=== PATIENT | female | born 1975 | race Caucasian/White ===

== ENCOUNTER 2016-07-24 07:48 | Observation (INO) | payer OTHER ==
--- NOTE | 2016-07-24 08:06 | CPEKG ---
Heart Rate: 78 RR Interval: 769 P-R Interval: 152 QRSD Interval: 82 QT Interval: 424 QTC Interval: 484 P Florence: 57 QRS Florence: 40 T Wave Florence: 20 EKG Severity - NORMAL ECG - EKG Impression: SINUS RHYTHM Electronically Signed By: Alana Rivera 24-Jul-2016 14:24:50
[2016-07-24 08:27] LABS: % IMMATURE GRANULYOCYTES 0.3 % (0.0-1.1); ABSOLUTE IMMATURE GRANULOCYTES 0.02 10^3/uL (0.00-0.10); ADD DIFF? NO; ADD MORPH? NO; ADD SCAN? NO; ATYPICAL LYMPHOCYTE FLAG 10 (0-99); FRAGMENT RBC FLAG 0 (0-99); HEMATOCRIT 41.2 % (38.0-47.0); HEMOGLOBIN 14.3 g/dL (12.6-16.3); LEFT SHIFT FLG 0 (0-99); LIPEMIA HEMOLYSIS FLAG 90 (0-99); MEAN CELL HEMOGLOBIN 31.1 pg (27.9-34.1); MEAN CELL HEMOGLOBIN CONCENTR. 34.7 g/dL (32.4-36.7); MEAN CELL VOLUME 89.6 fL (81.5-99.8); MEAN PLATELET VOLUME 10.2 fL (8.7-11.7); PLATELET CLUMPS FLAG 30 (0-99); PLATELET COUNT 247 10^3/uL (150-400); RED CELL DISTRIBUTION WIDTH 12.2 % (11.5-15.2)
--- NOTE | 2016-07-24 08:39 | EDPHY ---
H & P Time Seen by Provider: 07/24/16 08:12 HPI/ROS: CHIEF COMPLAINT: chest pain HISTORY OF PRESENT ILLNESS: Patient is a 41-year-old female status post coronary artery dissection in 07/10/2015. This required stenting at [facility]. Patient presents today because she is having increasing chest pain. The patient states she has intermittent chest pain. However, she developed chest pain last evening and into this morning that was worse than normal. It radiated to her left neck and left arm. It is waxing and waning. She describes it is moderate. It was slightly "different". Her pain is slightly worse sitting up when compared to laying back. No recent leg pain or swelling. No new shortness of breath. No nausea or vomiting. She is followed by Dr. Delarosa of Cardiology. REVIEW OF SYSTEMS: My complete review of systems is negative except as mentioned in the HPI. Past Medical/Surgical History: Includes spontaneous coronary artery dissection, anxiety, hip surgery Social history: The patient does not smoke Smoking Status: Never smoked Physical Exam: Vitals noted GENERAL: Well-appearing, in no acute distress, alert. HEENT: Eyes normal to inspection, normal pharynx, no signs of dehydration. NECK: No thyromegaly, no lymphadenopathy, supple. RESPIRATORY: Clear to auscultation bilaterally, no rales, rhonchi or wheezing. CVS: Regular rate and rhythm, no rubs, murmurs, or gallops. ABDOMEN: Soft, nontender, nondistended, no organomegaly. BACK: Normal to inspection, no CVA tenderness. SKIN: Normal color, no rash, warm, dry. No pallor. EXTREMITIES: No pedal edema, no calf tenderness, no Homans sign or cords, no joint swelling. NEURO/PSYCH: Alert and oriented, normal mood and affect, normal motor sensory exam. No obvious cranial nerve deficit. Constitutional: Initial Vital Signs Temperature (C) 36.4 C 07/24/16 07:53 Heart Rate 97 07/24/16 07:53 Respiratory Rate 18 07/24/16 07:53 Blood Pressure 142/96 H 07/24/16 07:53 O2 Sat (%) 98 07/24/16 07:53 O2 Delivery Mode Room Air Allergies/Adverse Reactions: No Known Allergies Allergy (Unverified 07/02/15 07:21) Home Medications: Medication Instructions Recorded LORazepam [Ativan (*)] 0.5 mg PO BID PRN 07/02/15 Multivitamins [Multivitamin (*)] 1 each PO DAILY 07/02/15 [place]-3 Fatty Acids [Fish Oil 1000 1,000 mg PO DAILY 07/02/15 mg (*)] Aspirin EC [Aspirin EC 81 mg (*)] 81 mg PO DAILY #0 tab 07/05/15 Clopidogrel Bisulfate [Plavix (*)] 75 mg PO DAILY #30 tab 07/05/15 Lisinopril [Zestril 5 mg (*)] 5 mg PO DAILY #30 tab 07/05/15 Metoprolol Tartrate [Lopressor 25 25 mg PO BID #60 tab 07/05/15 mg (*)] Medical Decision Making - Diagnostics Imaging: Chest x-ray: No acute disease noted. Please refer the dictated report by the Radiology. I personally reviewed the images. ED Course/Re-evaluation: In the emergency department I discussed possible etiologies with the patient. I answered all her questions. Laboratory studies, EKG and chest x-ray were ordered. I reviewed the patient's previous medical record and her history from 07/10/2015. EKG shows normal sinus rhythm, normal rate, normal axis, normal intervals. There are no ST or T-wave abnormalities. EKG is normal as interpreted by me. I compared this with EKG from 07/04/2015. At that time she had increased elevation in V1 through V5. Patient episode of chest pain while in the emergency department. Repeat EKG was performed. The patient had an episode of sinus tachycardia on EKG to 105. No other ischemic change. Patient did have multiple episodes mild chest discomfort. She was noted to become tachycardic when she had these episodes. This is identified on the rhythm strip. I discussed the results with cardiology. They were in the emergency department to evaluate the patient. I discussed all results with the patient. I answered her questions. She will be admitted for further observation. Differential Diagnosis: My differential includes but is not limited to ACS, acute [place], coronary artery dissection, aortic dissection, aneurysm, pulmonary embolus, myocarditis, pericarditis - Data Points Laboratory Results: Laboratory Results 07/24/16 08:08 07/24/16 08:08 07/24/16 07/24/16 07/24/16 08:08 08:08 08:00 WBC 6.23 10^3/uL 10^3/uL (3.80-9.50) RBC 4.60 10^6/uL 10^6/uL (4.18-5.33) Hgb 14.3 g/dL g/dL (12.6-16.3) Hct 41.2 % % (38.0-47.0) MCV 89.6 fL fL (81.5-99.8) MCH 31.1 pg pg (27.9-34.1) MCHC 34.7 g/dL g/dL (32.4-36.7) RDW 12.2 % % (11.5-15.2) Plt Count 247 10^3/uL 10^3/uL (150-400) MPV 10.2 fL fL (8.7-11.7) Neut % (Auto) 52.4 % % (39.3-74.2) Lymph % (Auto) 34.8 % % (15.0-45.0) [place] % (Auto) 9.5 % % (4.5-13.0) Eos % (Auto) 2.2 % % (0.6-7.6) Baso % (Auto) 0.8 % % (0.3-1.7) Nucleat RBC Rel Count 0.0 % % (0.0-0.2) Absolute Neuts (auto) 3.26 10^3/uL 10^3/uL (1.70-6.50) Absolute Lymphs (auto) 2.17 10^3/uL 10^3/uL (1.00-3.00) Absolute Monos (auto) 0.59 10^3/uL 10^3/uL (0.30-0.80) Absolute Eos (auto) 0.14 10^3/uL 10^3/uL (0.03-0.40) Absolute Basos (auto) 0.05 10^3/uL 10^3/uL (0.02-0.10) Absolute Nucleated RBC 0.00 10^3/uL 10^3/uL (0-0.01) Immature Gran % 0.3 % % (0.0-1.1) Immature Gran # 0.02 10^3/uL 10^3/uL (0.00-0.10) PT INR APTT Sodium 138 mEq/L mEq/L (134-144) Potassium 3.9 mEq/L mEq/L (3.5-5.2) Chloride 102 mEq/L mEq/L (97-110) Carbon Dioxide 23 mEq/l mEq/l (22-31) Anion Gap 13 mEq/L mEq/L (8-16) BUN 16 mg/dL mg/dL (7-23) Creatinine 0.7 mg/dL mg/dL (0.6-1.0) Estimated GFR > 60 Glucose 125 mg/dL H mg/dL (70-100) Calcium 9.8 mg/dL mg/dL (8.5-10.4) Troponin I < 0.012 ng/mL ng/mL (0-0.034) Beta HCG, Qual NEGATIVE 07/24/16 08:00 WBC RBC Hgb Hct MCV MCH MCHC RDW Plt Count MPV Neut % (Auto) Lymph % (Auto) [place] % (Auto) Eos % (Auto) Baso % (Auto) Nucleat RBC Rel Count Absolute Neuts (auto) Absolute Lymphs (auto) Absolute Monos (auto) Absolute Eos (auto) Absolute Basos (auto) Absolute Nucleated RBC Immature Gran % Immature Gran # PT 13.2 SEC SEC (12.0-15.0) INR 1.01 (0.83-1.16) APTT 25.0 SEC SEC (23.0-38.0) Sodium Potassium Chloride Carbon Dioxide Anion Gap BUN Creatinine Estimated GFR Glucose Calcium Troponin I Beta HCG, Qual Departure - Departure Disposition: [facility] Inpatient Acute Clinical Impression: Chest pain Qualifiers: Chest pain type: other chest pain Qualified Code(s): R07.89 - Other chest pain ; R07.8 - Other chest pain Condition: Good Referrals: NONE *PRIMARY CARE P,. [Primary Care Provider] - As per Instructions
[2016-07-24 08:48] LABS: INR 1.01 (0.83-1.16); PROTIME(PATIENT) 13.2 SEC (12.0-15.0)
[2016-07-24 08:59] LABS: ANION GAP 13 mEq/L (8-16); CALCIUM 9.8 mg/dL (8.5-10.4); CARBON DIOXIDE 23 mEq/l (22-31); CHLORIDE 102 mEq/L (97-110); CREATININE 0.7 mg/dL (0.6-1.0); GLOMERULAR FILTRATION RATE > 60; GLUCOSE 125 mg/dL (70-100); POTASSIUM 3.9 mEq/L (3.5-5.2); SODIUM 138 mEq/L (134-144)
[2016-07-24 09:10] LABS: TROPONIN I < 0.012 ng/mL (0-0.034)
--- NOTE | 2016-07-24 09:10 | CPEKG ---
Heart Rate: 105 RR Interval: 571 P-R Interval: 148 QRSD Interval: 82 QT Interval: 384 QTC Interval: 508 P [place]: 57 QRS [place]: 46 T Wave [place]: 33 EKG Severity - BORDERLINE ECG - EKG Impression: SINUS TACHYCARDIA EKG Impression: BORDERLINE PROLONGED QT INTERVAL Electronically Signed By: Alana Rivera 24-Jul-2016 14:24:50
[2016-07-24] MEDS ORDERED: ACETAMINOPHEN 325 MG TAB PO PRN (09:51)
[2016-07-24] MEDS ORDERED: ONDANSETRON 4 MG/2 ML VIAL IVP PRN (09:51)
[2016-07-24] MEDS ORDERED: ONDANSETRON DISINTEGRATING 4 MG TAB PO PRN (09:51)
--- NOTE | 2016-07-24 11:30 | ECHO ---
[id number] + + [address] : : [place] [address] : : [phone] + + Adult Echocardiographic Report + ---+ :Name: ANDREA VARGASAyden Date: 07/24/2016 09:50 AM : : Hospital Admission Number: [id number] Location: ED: :: 1975 Gender: Female Height: 63 in : :Age: 41 yrs Race: WH Weight: 126 lb : :Reason For Study: CP : : BSA: 1.6 meters2 : :History: SCAD, PCI LAD : + ---+ MMode/2D Measurements \T\ Calculations IVSd: 0.59 cm LVIDd: 4.4 cm FS: 40.5 % LVOT diam: 1.8 cm LVPWd: 0.76 cm LVIDs: 2.6 cm EDV(Teich): LVOT area: 89.6 ml 2.5 cm2 ESV(Teich): 25.6 ml EF(Teich): 71.5 % LVLd ap4: 8.3 cm SV(MOD-sp4): EDV(MOD-sp4): 50.0 ml 77.0 ml LVLs ap4: 6.1 cm ESV(MOD-sp4): 27.0 ml EF(MOD-sp4): 64.9 % Normal Measurement Values: + + :LVIDd (3.5-5.7cm) IVSd (0.6-1.1cm) LVPWd (0.6-1.1cm) Aortic Root (2.0-3.7cm)Left Atrium (1.5-4.0cm): :LV Vol(d) (76-115ml) LV Vol(s) (29-48ml) Ejec Fraction (50-65%)PV Charles (0.6- 1.2m/s) TV Charles (0.4-1.0m/s) : :MV E Charles (0.8-1.0m/s)MV A Charles (0.3-1.0m/s)LVOT Charles (0.7-1.2m/s) Asc Ao Charles ( 0.9-1.8m/s) : + + Doppler Measurements \T\ Calculations MV E max charles: MV V2 max: Ao V2 max: LV V1 max: 83.3 cm/sec 84.0 cm/sec 161.0 cm/sec 127.0 cm/sec MV A max charles: MV max PG: Ao max PG: LV V1 max P.8 cm/sec 2.8 mmHg 10.4 mmHg 6.5 mmHg MV E/A: 1.5 MV V2 mean: Ao mean PG: LV V1 mean PG: MV dec time: 52.5 cm/sec 5.0 mmHg 3.0 mmHg 0.25 sec MV mean PG: Ao V2 mean: LV V1 mean: 1.0 mmHg 103.0 cm/sec 86.5 cm/sec MV V2 VTI: 28.6 cmAo V2 VTI: 29.9 cm LV V1 VTI: 25.2 cm MVA(VTI): 2.2 cm2 JEAN(I,D): 2.1 cm2 JEAN(V,D): 2.0 cm2 SV(LVOT): 64.1 ml PA V2 max: TR max charles: Pulm Sys Charles: 109.0 cm/sec 221.0 cm/sec 54.0 cm/sec PA max PG: TR max PG: Pulm Lopez Charles: 4.8 mmHg 19.5 mmHg 48.2 cm/sec RAP systole: Pulm S/D: 1.1 10.0 mmHg RVSP(TR): 29.5 mmHg Left Ventricle The left ventricle is normal in size and function. There is normal left ventricular wall thickness. Left ventricular systolic function is normal. Ejection Fraction = 60-65%. Mild mid- anteroseptal hypokinesis. Right Ventricle The right ventricle is normal in size and function. Atria The left atrial size is normal. Right atrial size is normal. Mitral Valve The mitral valve is normal in structure and function. There is no mitral valve stenosis. There is trace to mild mitral regurgitation. Tricuspid Valve The tricuspid valve is normal in structure and function. There is no tricuspid stenosis. There is mild tricuspid regurgitation. Right ventricular systolic pressure is normal. Aortic Valve The aortic valve is normal in structure and function. There is no aortic stenosis. There is no aortic insufficiency. Pulmonic Valve The pulmonic valve is not well visualized. There is no pulmonic valvular stenosis. There is no pulmonic valvular regurgitation. Great Vessels The aortic root is normal size. Pericardium/Pleural trivial pericardial effusion. There is a fat pad seen. Conclusion A complete two-dimensional transthoracic echocardiogram was performed (2D, M-mode, Doppler and color flow Doppler). The left ventricle is normal in size and function. Ejection Fraction = 60-65%. Left ventricular systolic function is normal. Mild mid- anteroseptal hypokinesis There is trace to mild mitral regurgitation. There is mild tricuspid regurgitation. Right ventricular systolic pressure is normal. The aortic valve is normal in structure and function. trivial pericardial effusion. Similar findings compared with 07/02/2015 Final Reading Physician: Dr Tracy Aguayo electronically signed on 07/24/2016 11:30 AM Ordering Physician: Nba Bhardwaj Performed By: Eden Deleon
[2016-07-24] MEDS: LORazepam 0.5 MG TAB PO PRN ×2 (14:03→21:06)
[2016-07-24 14:16] LABS: C-REACTIVE PROTEIN < 5.0 mg/L (<10.0)
[2016-07-24 14:21] LABS: HEMATOCRIT 37.4 % (38.0-47.0)
[2016-07-24 14:25] LABS: TROPONIN I < 0.012 ng/mL (0-0.034)
--- NOTE | 2016-07-24 14:56 | GHP ---
DATE OF ADMISSION: 07/24/2016 CHIEF COMPLAINT: Ongoing midsternal chest pressure. HISTORY OF PRESENT ILLNESS: The patient is a 41-year-old female, who is known to our service. She has a significant cardiac history of spontaneous coronary artery dissection July 02, 2015, causin g an anterior ND and requiring PCI with 2 ALLIE implantations of the LAD on July 03, 2015. She als o has significant history of hypertension. Patient reporting onset of midsternal chest pressure wit h radiation to the left arm starting last evening, reporting it as intermittent, coming on spontaneo usly, not associated with shortness of breath, nausea, or diaphoresis. Reporting he felt like the s ymptoms somewhat subsided last evening, unable to sleep, but unfortunately, waking up again with sim ilar symptoms. She has been known in the past to have intermittent chest pressure since her angiopl asty, but reports that the symptoms she experienced last evening and this morning, are different, an d she has not experienced any radiation to her arm since her ND. This had concerned her, and liza t her into the emergency department for further evaluation. Upon arrival, initial electrocardiogram done, showing sinus rhythm with nonspecific T-wave abnormalities. This is unchanged from previous electrocardiogram done earlier this year at her last office visit on June 24. She did develop some chest pressure, and her heart rate then noted to be increased. At that time, it was noted that she did have a mild biphasic T-wave in V2. She reports yesterday she was in her normal state healt h, but did report that last Thursday, being up at [place] and reporting feeling more fatigue a nd shortness of breath, requiring her to leave early. She denies any palpitations, orthopnea, PND, edema, near-syncope, or syncopal events. Denies any symptoms suggestive of TIA or CVA. She denies any recent fevers, chills, or night sweats. She does report that her chest pressure appears to be f eeling better when she is lying flat versus when sitting up. She does report she has been medicatio n compliant. Post her ND, she was seen at the [facility], and in reviewing her medical records, pb vargas has undergone CTA of the neck, abdomen, and pelvis, showing no signs of fibromuscular dysplasia. Patient also reports that she had recently been started on hydrochlorothiazide by Dr. Delarosa due to o ngoing episodes of hypertension with systolic blood pressures running in 150s to 160s, despite being on metoprolol and lisinopril. She reported initial dose of 12.5 mg p.o. daily had made her feel li ghtheaded and dizzy, and they had recently decreased the dosage last week down to 6.25 mg p.o. daily , reporting no further symptoms of lightheadedness. PAST MEDICAL HISTORY: The patient is known to have spontaneous coronary artery dissection of the le ft anterior descending artery, causing clot and thrombus and anterior ND, requiring 2 ALLIE implantati ons July 03, 2015, hypertension, myocardial infarction. PAST SURGICAL HISTORY: Includes open left hip reconstruction in 2010, PCI of the LAD with 2 ALLIE imp lantations in 2016. FAMILY HISTORY: Patient noted to have a grandfather with coronary artery disease. Father had a CVA at age 35. Both mother and father have hypertension. SOCIAL HISTORY: She is in a long-term relationship. She has no children. She occasionally drinks alcohol. She has never smoked. She exercises 3-4 times a week. She is self-employed. She denies any illicit drug use. ALLERGIES: The patient has no known drug allergies. HOME MEDICATIONS: Include: 1. Hydrochlorothiazide 6.25 mg p.o. daily. 2. Aspirin 81 mg p.o. daily. 3. Metoprolol succinate 12.5 mg p.o. at bedtime. 4. Ativan 0.5 mg p.o. q.6 hours p.r.n. 5. Clopidogrel 75 mg p.o. daily. 6. Lisinopril 20 mg p.o. daily. 7. [place]-3 fatty acid 1000 mg p.o. daily. 8. Multivitamin p.o. daily. REVIEW OF SYSTEMS: A 10-point review of systems done on this patient all negative, except as moses loco above. PHYSICAL EXAMINATION: GENERAL APPEARANCE: Thin, well-groomed, female. She is alert, aide ented to person, place, time, and situation. Appears to be under no acute distress at this time. V ITAL SIGNS: Current blood pressure is 119/89, heart rate is 63, sinus rhythm on the monitor. Respi rations 18, saturating 96% on room air. Temperature 36.7 degrees Celsius. HEENT: Head is normocep halic. Lips and tongue are pink and moist with no signs of cyanosis. Conjunctivae pink. NECK: Tr achea is midline, +2 carotid pulses bilateral. No auscultated bruits. No jugular vein distention. RESPIRATORY: Lungs clear to auscultation. No rhonchi, rales or wheezes. No accessory muscle use. No intercostal muscle retraction. CARDIAC: Regular rate, regular rhythm, S1, S2. No S3, S4 note d. ABDOMEN: Soft, nontender, bowel sounds x4 quadrants. No organomegaly. No palpable masses. SK IN: [place], warm, dry. No cyanosis, no clubbing, no peripheral edema. VASCULAR: +2 carotids bilate ral, +2 radials bilateral, +2 dorsal, pedal and posterior tibial pulses bilateral. NEURO: Cranial nerves 2-12 grossly intact. LABORATORY STUDIES: WBC 6.23, hemoglobin 14.3, hematocrit 41.2, platelet count 247. INR 1.01. Sod ium 138, potassium 3.9, chloride 102, CO2 of 23, BUN 16, creatinine 0.7, glucose 125, calcium 9.8. Troponin less than 0.012. test negative. DIAGNOSTIC STUDIES: Initial electrocardiogram and repeated electrocardiogram as mentioned above. C hest x-ray showed no acute cardiopulmonary process. Echocardiogram showed LV of normal size and fun ction with EF of 60% to 65%. Mild mid anterior septal hypokinesis. Trace to mild MR, mild TR. RVS P was normal. Trivial pericardial effusion. These, in comparison to previous echocardiogram dated July 02, 2015, show no significant changes. ASSESSMENT/PLAN: 1. Chest pressure: Patient with known history of spontaneous coronary artery disease dissection, w hich caused an anterior myocardial infarction, needing PCI with 2 ALLIE implantations a little over a year ago, reporting known history of episodic sporadic chest pressure, reporting different sensation today, with radiation into her left arm, coming on spontaneously, and dissipating intermediately. Echocardiogram showing left ventricular function unchanged from previous echocardiogram done on 2015. The patient does admit chest pressure is worse when sitting up rather than lying flat . Denies any fever, chills, or night sweats, but does report fatigue symptoms when up to altitude o n Thursday of last week. Initial troponin negative. Initial electrocardiogram unchanged. With chest pressure, she did get tachycardiac. Patient noted to have biphasic T-waves in V2. At this time, t here is concern with past history of possible acute coronary syndrome, potentially beginning of rest enosis of stents. We will admit her to the hospital, monitor her on continuous cardiac monitoring, and cycle her troponins. If they remain negative, we will then consider doing an exercise tolerance test/myocardial perfusion imaging on her in the morning. If they do show positive, or if her sympt oms worsen, then would consider doing diagnostic coronary angiogram for further evaluation of cardia c ischemia. Also, there is some concern as the patient was noted to have questionable pericarditis post myocardial infarction. She reports symptoms are different from what she felt in the past, but does admit positional change does make a difference with pressure. No signs of pericarditis on elec trocardiogram at this time. Will get a C-reactive protein and a sedimentation rate with her next la boratory studies. Will also get a D-dimer. We will continue on current home anti-platelet therapy of aspirin and clopidogrel. Will resume her beta-vonnie therapy of metoprolol succinate. 2. Hypertension: Patient with noted history of hypertension. Will resume her home doses of Toprol and lisinopril. Patient reporting recently starting on hydrochlorothiazide reporting at 12.5 mg p. o. daily making her feel fatigued and lightheaded, but no symptoms since reducing dose to 6.25 mg. I would like to hold off on restarting her hydrochlorothiazide at this time, monitor her blood press ure. If necessary, will re-add the hydrochlorothiazide or consider increasing her lisinopril or pot entially starting her on low-dose amlodipine. 3. History of spontaneous coronary artery dissection: Patient remains on anti-platelet therapy as above. She has been to the [facility] who have done CTA of the neck, abdomen, pelvis, finding no f ibromuscular dysplasia. Medical therapy as above. 4. Code status: Patient is a full code. 5. Deep vein thrombosis precaution: Patient to continue on anti-platelet therapy as mentioned kian vargas. She is up ad regino. We will have her use ANAMIKA hose as needed. /[id number]/MODL
[2016-07-24] MEDS ORDERED: NITROGLYCERIN 0.4 MG BTL SL PRN (16:51)
[2016-07-24] MEDS: IBUPROFEN 200 MG TAB PO PRN (17:29)
[2016-07-24] MEDS ORDERED: METOPROLOL SUCCINATE XR 25 MG TAB PO SCH (21:00)
[2016-07-25] MEDS: PANTOPRAZOLE SODIUM 40 MG TAB PO SCH ×2 (05:31→07:53)
[2016-07-25] MEDS: LORazepam 0.5 MG TAB PO PRN (07:52)
[2016-07-25] MEDS: IBUPROFEN 200 MG TAB PO PRN (07:55)
[2016-07-25] MEDS ORDERED: ASPIRIN EC 81 MG TAB PO SCH (09:00)
[2016-07-25] MEDS ORDERED: MULTIVITAMINS 1 EACH TAB PO SCH (09:00)
[2016-07-25] MEDS ORDERED: LISINOPRIL 20 MG TAB PO SCH (09:00)
[2016-07-25] MEDS ORDERED: OMEGA-3 FATTY ACIDS 1,000 MG CAP PO SCH (09:00)
[2016-07-25] MEDS ORDERED: CLOPIDOGREL BISULFATE 75 MG TAB PO SCH (09:00)
[2016-07-25] MEDS ORDERED: Herbals/Supplements -Info Only PO SCH (09:00)
--- NOTE | 2016-07-25 09:08 | CPEKG ---
Heart Rate: 61 RR Interval: 984 P-R Interval: 156 QRSD Interval: 74 QT Interval: 440 QTC Interval: 444 P Cod[place]: 64 QRS [place]: 57 T Wave [place]: 39 EKG Severity - ABNORMAL ECG - EKG Impression: SINUS RHYTHM EKG Impression: ST ELEVATION SUGGESTS PERICARDITIS Electronically Signed By: Damion Wang 25-Jul-2016 14:39:50
[2016-07-25] MEDS ORDERED: FLU VACC QS 2016-17(3-64YR)/PF 0.5 ML SYR (FLUARIX QUAD) IM ONE (10:48)
[2016-07-25] MEDS ORDERED: REGADENOSON 0.4 MG/5 ML SYR IVP ONE (11:04)
--- NOTE | 2016-07-25 12:32 | CPR ---
LEXISCAN INJECTION OF LEXISCAN MPI STUDY. INDICATION FOR PROCEDURE: Chest pressure with known history of spontaneous coronary artery dissection and previous myocardial infarction. PRE: After obtaining informed consent and ensuring patient's n.p.o. status of caffeine for greater than 12 hours, patient was placed on electrocardiogram. Initial EKG shows sinus rhythm. Patient denies of any chest pain or shortness of breath. Symptoms suggesting of ischemia. Initial vital signs are blood pressure 130/80, saturating 98% on room air. INJECTION: Patient was given Lexiscan 0.4 mg slow IV push, followed by nuclear isotope. Within 1 minute, patient's heart rate did increase up to 127 bpm, no significant electrocardiogram changes. She does report mild flushing sensation with some shortness of breath post injection. After 2 minutes, she was given a caffeinated beverage, and within 5 minutes, her heart rate returned back to baseline at 90 beats per minute, electrocardiogram remained unchanged, final blood pressure of 120/87, saturation 97%, reporting all symptoms subsided. IMPRESSION: A 41-year-old female with previous history of spontaneous coronary artery dissection and myocardial infarction of the LAD 1 year ago. Reporting ongoing chest pressure, undergoing Lexiscan MPI to evaluate for cardiac ischemia. The patient reporting mild shortness of breath with injection of Lexiscan which dissipated with caffeinated beverage within 5 minutes. No significant EKG changes during injection. Vital signs are stable. She will finish poststress imaging in nuclear medicine at this time. /[id number]/MODL MTDD
[2016-07-25 12:45] VITALS: BP 109/78; PULSE 67; RESP 17; TEMP 97.9; O2SAT 98
[2016-07-25] MEDS ORDERED: IBUPROFEN 600 MG TAB PO SCH (14:00)
[2016-07-25] MEDS ORDERED: COLCHICINE 0.6 MG CAP/TAB PO SCH (21:00)
--- NOTE | 2016-07-25 22:14 | GDS ---
ADMISSION DIAGNOSES: 1. Chest pressure. 2. Sudden coronary artery dissection. 3. Previous myocardial infarction of the LAD with percutaneous coronary intervention. 4. Hypertension. DISCHARGE DIAGNOSES: 1. Chest pressure probable pericarditis. 2. Subacute history of sudden coronary artery dissection. 3. Previous myocardial infarction of anterior wall with previous percutaneous coronary intervention . 4. Hypertension. PROCEDURES DONE DURING HOSPITALIZATION: 1. Electrocardiogram. 2. Echocardiogram. 3. Myocardial perfusion imaging. BRIEF HISTORY: Please see H and P. The patient is a 41-year-old female with history of myocardial infarction, sudden coronary artery dissection, and ALLIE implantation June of 2015. She reports s he had been in normal state of health until last with fatigue symptoms and havin g to come home early. Reports rest of the week, she had been doing fine until the morning of the 2n d, reporting midsternal chest pressure with mild radiation to her left arm. Reporting this is diffe rent from previous chest pressure she has had post PCI that worried her and came to the hospital for further evaluation. HOSPITAL COURSE: Patient was admitted through the emergency department. There, she underwent elect rocardiogram showing sinus rhythm with no acute ST or T-wave abnormalities. Chest x-ray showed no a cute cardiopulmonary process. Troponin level was negative. She did undergo echocardiogram while do wn there which showed normal ejection fraction of 60% to 65%, but noted to have mild mid anterior se ptal hypokinesis, which was unchanged from her previous echocardiogram of July 02, 2015. She was admitted to the hospital to rule out ACS. She underwent troponin levels x3, which were all within normal limits. She also had a D-dimer which was less than 0.27. She reports her pain did subside a fter a dose of ibuprofen. She underwent stress MPI imaging today which noted fixed thinning of the septal wall with some mild hypokinesis, but no reversible deficit suggesting myocardial ischemia. E lectrocardiograms done today did notice mild ST elevation in multiple leads consistent with possible pericarditis. At this time, she has been started on nonsteroidal anti-inflammatories of ibuprofen 800 mg every 8 hours, which we would like her continue for the next 10 days. She has been started o n prophylactic Protonix to take along with ibuprofen. She has been also started on colchicine at 0. 6 mg p.o. b.i.d. At the current time, she is pain-free. Her vital signs have been stable. PHYSICAL EXAMINATION: GENERAL: Today, showed a medium built, well-groomed, female. She is alert and oriented to person, place, time, and situation. Appears to be under no acute distress. VITAL SIGNS: Blood pressure of 109/78, heart rate 67, sinus rhythm on the monitor. Respirations are 17. Saturating 98% on room air. Temperature 36.6 degrees Celsius. HEENT: Head is normocephal ic. Lips are pink and moist with no signs of cyanosis. Conjunctivae pink. NECK: Trachea is midli ne, +2 carotid pulses bilateral. No auscultated bruits. No jugular vein distention. RESPIRATORY: Lungs clear to auscultation. No rhonchi, rales or wheezes. No accessory muscle use. No intercost al muscle retraction noted. CARDIAC: Regular rate, regular rhythm. S1, S2. No S3, S4. No rubs, gallops, or murmur noted. ABDOMEN: Soft, nontender. Bowel sounds x4 quadrants. No organomegaly. No palpable masses. SKIN: [place], warm, dry. No cyanosis. No clubbing. No peripheral edema. VAS CULAR: +2 carotids bilateral, +2 radials bilateral, +2 dorsal, pedal and posterior tibial pulses bi lateral. NEURO: Cranial nerves 2-12 grossly intact. LABORATORY: Cardiac monitoring throughout the evening showed sinus rhythm, sinus esther with no ami gnant arrhythmias or pauses noted. Laboratory studies on admission: WBC 6.23, hemoglobin 14.3, hematocrit 41.2, platelet count 247. I NR was 1.01. D-dimer was less than 0.27. Sodium 138, potassium 3.9, chloride 102, CO2 23, BUN 16, creatinine 0.7, glucose 125, calcium 9.8. The patient has had 3 troponin levels that have all been less than 0.012. test was negative. ESR was 7. C-reactive protein was less than 5.0. STUDIES: Echocardiogram: As above. MPI study: As above. Electrocardiogram: As above. DISCHARGE DISPOSITION: Patient will be discharged home in fair condition. She is under activity re strictions. She has been asked to perform no strenuous activity for the next 2 weeks until she foll ows up in office. DISCHARGE MEDICATIONS: Please see discharge medication reconciliation sheet. Note that patient's b lood pressure has been stable. Her blood pressure has been within normal limits. She does not like the hydrochlorothiazide that she takes. We will hold it at this time. She has been asked to monit or her blood pressure on a daily basis, keeping a log, and returning with it on her next office visi t. Patient has also been started on ibuprofen every 8 hours, Protonix, and colchicine. No other ch anges in her home medications. She will continue on current home anti-platelet therapy of aspirin a nd clopidogrel. DISCHARGE INSTRUCTIONS: Pericarditis discharge instructions were gone over with the patient and her significant other. They both verbalized understanding. Patient reports she is currently chest murphy n free. Vital signs are stable. She has been told that if she has any problems or concerns when ho me, she is to notify our office or return to the hospital. Blood pressure monitoring: She has been asked to perform a home BP log on a daily basis and return with it on her next office visit for further evaluation. She has a followup appointment set with Dr. Delarosa on August 04 at 10 a.m. at our [place] office. At the time of discharge, both patient and her verbalized understanding all instructions. TOTAL TIME SPENT ON DISCHARGE: Greater than 30 minutes. /[id number]/MODL
== END 2016-07-25 15:50 | disposition home or self-care (01) ==
LOC: F2W 10:54
PROVIDERS: ADMIT Internal Medicine Cardiovascular Disease; ATTEND Internal Medicine Cardiovascular Disease
DX: I31.9 Disease of pericardium, unspecified (principal); Z23 Encounter for immunization; I25.2 Old myocardial infarction; I10 Essential (primary) hypertension
CPT/HCPCS: 71010; 78452; 90471; 93005; 93017; 93306; 99285; A9500; G0378; G0008; J2785

== ENCOUNTER 2016-12-12 18:50 | Emergency (ER) | payer BC, OTHER ==
[2016-12-12 18:56] VITALS: RESP 18
--- NOTE | 2016-12-12 19:06 | EDPHY ---
H & P Stated Complaint: Upper abd pain x 2 hrs; slight nausea;denies vom or diarrhea Time Seen by Provider: 12/12/16 19:06 HPI/ROS: HPI CHIEF COMPLAINT: [ ] HISTORY OF PRESENT ILLNESS: [Need 4: Location, Duration, Severity, Quality, Context, Timing Modifying Factors, Associated S&S] Past Medical History: Past Surgical History: Social History: Family History: ROS REVIEW OF SYSTEMS: A comprehensive 10 point review of systems is otherwise negative aside from elements mentioned in the history of present illness. Exam Constitutional triage nursing summary reviewed, vital signs reviewed, awake/ alert. Eyes normal conjunctivae and sclera, EOMI, PERRLA. HENT normal inspection, atraumatic, moist mucus membranes, no epistaxis, neck supple/ no meningismus, no raccoon eyes. Respiratory clear to auscultation bilaterally, normal breath sounds, no respiratory distress, no wheezing. Cardiovascular rate normal, regular rhythm, no murmur, no edema, distal pulses normal. Gastrointestinal soft, non-tender, no rebound, no guarding, normal bowel sounds, no distension, no pulsatile mass. Genitourinary no CVA tenderness. Musculoskeletal no midline vertebral tenderness, full range of motion, no calf swelling, no tenderness of extremities, no meningismus, good pulses, neurovascularly intact. Skin pink, warm, & dry, no rash, skin atraumatic. Neurologic awake, alert and oriented x 3, AAOx3, moves all 4 extremities equally, motor intact, sensory intact, CN II-XII intact, normal cerebellar, normal vision, normal speech. Psychiatric normal mood/affect. Heme/Lymph/Immune no lymphadenopathy. Differential Diagnosis: Medical Decision Making: Re-evaluation: Source: Patient - Personal History LMP (Females 10-55): Now Current Tetanus Diphtheria and Acellular Pertussis (TDAP): Yes - Medical/Surgical History Hx Asthma: No Hx Chronic Respiratory Disease: No Hx Diabetes: No Hx Cardiac Disease: No Hx Renal Disease: No Hx Cirrhosis: No Hx Alcoholism: No Hx HIV/AIDS: No Hx Splenectomy or Spleen Trauma: No Other PMH: anxiety, hip surgery. cardiac dissection 07/10. pericarditis - Social History Smoking Status: Never smoked Constitutional: Initial Vital Signs Temperature (C) 36.6 C 12/12/16 18:50 Heart Rate 78 12/12/16 18:50 Respiratory Rate 18 12/12/16 18:50 Blood Pressure 135/97 H 12/12/16 18:50 O2 Sat (%) 99 12/12/16 18:50 O2 Delivery Mode Room Air Allergies/Adverse Reactions: No Known Allergies Allergy (Verified 12/12/16 18:51) Home Medications: Medication Instructions Recorded LORazepam [Ativan (*)] 0.5 mg PO Q6H PRN 07/02/15 Multivitamins [Multivitamin (*)] 1 each PO DAILY 07/02/15 [place]-3 Fatty Acids [Fish Oil 1000 1,000 mg PO DAILY 07/02/15 mg (*)] Aspirin EC [Aspirin EC 81 mg (*)] 81 mg PO DAILY #0 tab 07/05/15 Clopidogrel Bisulfate [Plavix (*)] 75 mg PO DAILY #30 tab 07/05/15 [place]/Supplements -Info Only 1 ea PO DAILY 07/24/16 Lisinopril [Zestril 20 mg (*)] 20 mg PO DAILY 07/24/16 Metoprolol Succinate Xr [Toprol Xl 12.5 mg PO HS 07/24/16 25 mg (*)] Acetaminophen [Tylenol 325mg (*)] 650 mg PO Q4HRS PRN #0 tab 07/25/16 Colchicine [Colchicine (*)] 0.6 mg PO BID #60 ea 07/25/16 Ibuprofen [Motrin (*)] 600 mg PO Q8 #0 tab 07/25/16 Nitroglycerin [Nitrostat 0.4 mg 0.4 mg SL Q5M PRN #0 btl 07/25/16 (*)] Pantoprazole Sodium [Protonix 40mg 40 mg PO DAILY #30 tab 07/25/16 (*)] Departure - Departure Referrals: NONE *PRIMARY CARE P,. [Primary Care Provider] - As per Instructions
--- NOTE | 2016-12-12 19:06 | EDPHY ---
H & P Stated Complaint: Upper abd pain x 2 hrs; slight nausea;denies vom or diarrhea Time Seen by Provider: 12/12/16 19:06 HPI/ROS: CHIEF COMPLAINT: Right-sided abdominal pain. HISTORY OF PRESENT ILLNESS: This patient is a 41 year old female arriving with her complaining of right-sided abdominal pain that began two hours ago. The pain is localized under her right ribs, and occasionally radiates up into her shoulder. She states the pain is quite severe, rating it at 10/10. It began abruptly. She endorses increased pain with deep inspiration but no chest pain or shortness of breath. She had a sweet potato taco and a beer earlier this evening parentheses she is vegetarian), and attempted to relieve her pain with ibuprofen, which had no effect. She endorses slight nausea from pain, but denies vomiting, or diarrhea. No back pain or dysuria. No fever. No prior history of abdominal surgery. REVIEW OF SYSTEMS: A ten point review of systems was performed and is negative with the exception of the items mentioned in the HPI. - Personal History LMP (Females 10-55): Now Current Tetanus Diphtheria and Acellular Pertussis (TDAP): Yes - Medical/Surgical History PMH: 1. Myocardial Infarction 2. Spontaneous coronary artery dissection 2. Hypertension Hx Asthma: No Hx Chronic Respiratory Disease: No Hx Diabetes: No Hx Cardiac Disease: No Hx Renal Disease: No Hx Cirrhosis: No Hx Alcoholism: No Hx HIV/AIDS: No Hx Splenectomy or Spleen Trauma: No Other PMH: anxiety, hip surgery. Coronary artery dissection with resultant NSTEMI 07/10. pericarditis - Social History Smoking Status: Never smoked Alcohol Use: Occasionally Additional Social History: at bedside. Nonsmoker. Occasional alcohol use. - Physical Exam Exam: General Appearance: Alert. Vital signs reviewed. Blood pressure 135/97. Eyes: Pupils equal and round, no conjunctival injection, no discharge. Anicteric. ENT, Mouth: Mucous membranes are moist, no oropharyngeal erythema or edema. Neck: No lymphadenopathy, supple. Respiratory: Lungs are clear to auscultation; no wheezes, rales, or rhonchi. Cardiovascular: Regular rate and rhythm; no murmur, rub, or gallop. Gastrointestinal: Midepigastric and right upper quadrant tenderness. No guarding. Abdomen is soft, no masses or organomegaly, bowel sounds normal. Skin: Warm and dry, no rashes on exposed skin, normal color. Back: Nontender to palpation over the thoracolumbar spine. No CVAT. Extremities: No lower extremity edema, no calf tenderness or swelling. Neurological: Alert and oriented. Moving all four extremities easily and equally. Psychiatric: Normal affect. Constitutional: Initial Vital Signs Temperature (C) 36.6 C 12/12/16 18:50 Heart Rate 78 12/12/16 18:50 Respiratory Rate 18 12/12/16 18:50 Blood Pressure 135/97 H 12/12/16 18:50 O2 Sat (%) 99 12/12/16 18:50 O2 Delivery Mode Room Air Allergies/Adverse Reactions: No Known Allergies Allergy (Verified 12/12/16 18:51) Home Medications: Medication Instructions Recorded LORazepam [Ativan (*)] 0.5 mg PO Q6H PRN 07/02/15 Multivitamins [Multivitamin (*)] 1 each PO DAILY 07/02/15 [place]-3 Fatty Acids [Fish Oil 1000 1,000 mg PO DAILY 07/02/15 mg (*)] Aspirin EC [Aspirin EC 81 mg (*)] 81 mg PO DAILY #0 tab 07/05/15 Clopidogrel Bisulfate [Plavix (*)] 75 mg PO DAILY #30 tab 07/05/15 Herbals/Supplements -Info Only 1 ea PO DAILY 07/24/16 Lisinopril [Zestril 20 mg (*)] 20 mg PO DAILY 07/24/16 Metoprolol Succinate Xr [Toprol Xl 12.5 mg PO HS 07/24/16 25 mg (*)] Acetaminophen [Tylenol 325mg (*)] 650 mg PO Q4HRS PRN #0 tab 07/25/16 Colchicine [Colchicine (*)] 0.6 mg PO BID #60 ea 07/25/16 Ibuprofen [Motrin (*)] 600 mg PO Q8 #0 tab 07/25/16 Nitroglycerin [Nitrostat 0.4 mg 0.4 mg SL Q5M PRN #0 btl 07/25/16 (*)] Pantoprazole Sodium [Protonix 40mg 40 mg PO DAILY #30 tab 07/25/16 (*)] Medical Decision Making ED Course/Re-evaluation: Initial impression is that this is biliary pain. Plan CBC, chemistries, liver functions, lipase, and gallbladder ultrasound. 8:10 p.m. patient re-examined. She decided not to take any pain medication and states that her pain is improved when she lies still. I am proceeding with gallbladder ultrasound. Another strong diagnostic possibility being is kidney stone. She and I discussed both of these possibilities. She is hoping to return home if her gallbladder ultrasound is normal. She does not wish to pursue further evaluation at this point in time. She understands that if her pain persists, worsens, or changes in any way she will need to return. She does have blood in her urine but she is having her menstrual period which likely accounts for that. Right upper quadrant ultrasound is reported to me as normal. As above, she does not wish to pursue further imaging or evaluation. She understands that the etiology of her pain has not been determined. She is comfortable returning home and understands that she will need to be re-evaluated if her pain does not jack. Differential Diagnosis: Abdominal pain including but not limited to appendicitis, cholecystitis, pancreatitis, ureterolithiasis, gastritis and urinary tract infection. - Data Points Laboratory Results: Laboratory Results 12/12/16 19:25 12/12/16 19:25 Medications Given: Discontinued Medications Fentanyl (Sublimaze) 75 mcg IVP EDNOW ONE Stop: 12/12/16 19:20 Last Admin: 12/12/16 20:48 Dose: Not Given Departure - Departure Disposition: Home, Routine, Self-Care Clinical Impression: Abdominal pain Qualifiers: Abdominal location: right upper quadrant Qualified Code(s): R10.11 - Right upper quadrant pain Condition: Good Instructions: Acute Abdominal Pain (ED) Additional Instructions: If you have worsening or continuation of your abdominal pain you will need to return for another evaluation. It is not clear what is causing her pain. I have not found evidence of gallbladder obstruction or infection, pancreatitis, or appendicitis. Adult Pain & Fever Control: We recommend Acetaminophen (Tylenol) and Ibuprofen (Motrin,Advil) for pain and fever control. When fever is high or pain severe, both drugs can be used at the same time, but at different intervals. Please note the time differences. Your dose is: Acetaminophen [650]mg every 4 to 6 hours Ibuprofen [400]mg every [6] hours with food OR Note: do not take Acetaminophen with Hydrocodone (Vicodin, Lortab) or Oycodone (Percocet). These medications also contain Acetaminophen. No more than 3000mg of Acetaminophen should be taken in 24 hours (for an adult). Referrals: NONE *PRIMARY CARE P,. [Primary Care Provider] - As per Instructions Merary Bautista MD [Medical Doctor] - As per Instructions Report Scribed for: Rosa Vasquez Report Scribed by: Patricia Hernandez Date of Report: 12/12/16 Time of Report: 19:19 Physician Review and Approval Statement: 12/12/16 19:06 Portions of this note were transcribed by the medical social worker. I, Dr. Rosa Vasquez, personally performed the history, physical exam, and medical decision- making; and confirmed the accuracy of the information in the transcribed note.
[2016-12-12] MEDS ORDERED: fentaNYL 100 MCG/2 ML INJ IVP ONE (19:19)
[2016-12-12 19:23] LABS: COLOR PALE YELLOW; LEUKOCYTE ESTERASE,URINE NEGATIVE (NEGATIVE); NITRITE,URINE NEGATIVE (NEGATIVE)
[2016-12-12 19:31] LABS: % IMMATURE GRANULYOCYTES 0.4 % (0.0-1.1); ABSOLUTE IMMATURE GRANULOCYTES 0.04 10^3/uL (0.00-0.10); ADD DIFF? NO; ADD MORPH? NO; ADD SCAN? NO; ATYPICAL LYMPHOCYTE FLAG 0 (0-99); FRAGMENT RBC FLAG 0 (0-99); HEMATOCRIT 37.7 % (38.0-47.0); HEMOGLOBIN 12.9 g/dL (12.6-16.3); LEFT SHIFT FLG 0 (0-99); LIPEMIA HEMOLYSIS FLAG 90 (0-99); MEAN CELL HEMOGLOBIN 31.9 pg (27.9-34.1); MEAN CELL HEMOGLOBIN CONCENTR. 34.2 g/dL (32.4-36.7); MEAN CELL VOLUME 93.1 fL (81.5-99.8); MEAN PLATELET VOLUME 10.3 fL (8.7-11.7); PLATELET CLUMPS FLAG 0 (0-99); PLATELET COUNT 255 10^3/uL (150-400); RED BLOOD CELL COUNT 4.05 10^6/uL (4.18-5.33); RED CELL DISTRIBUTION WIDTH 12.3 % (11.5-15.2)
[2016-12-12 19:47] LABS: ALANINE AMINOTRANSFERASE 28 IU/L (9-52); ALBUMIN 4.4 g/dL (3.5-5.0); ALKALINE PHOSPHATASE 47 IU/L (38-126); ANION GAP 16 mEq/L (8-16); ASPARTATE AMINOTRANSFERASE 20 IU/L (14-46); BILIRUBIN,TOTAL 0.6 mg/dL (0.1-1.4); BILIRUBIN-CONJUGATED 0.3 mg/dL (0.0-0.5); BILIRUBIN-UNCONJUGATED 0.3 mg/dL (0.0-1.1); CALCIUM 9.5 mg/dL (8.5-10.4); CARBON DIOXIDE 19 mEq/l (22-31); CHLORIDE 108 mEq/L (97-110); CREATININE 0.7 mg/dL (0.6-1.0); GLOMERULAR FILTRATION RATE > 60; GLUCOSE 88 mg/dL (70-100); POTASSIUM 3.7 mEq/L (3.5-5.2); SODIUM 143 mEq/L (134-144); TOTAL PROTEIN 7.2 g/dL (6.3-8.2)
[2016-12-12 21:18] VITALS: BP 127/88; PULSE 75; TEMP 98.2; O2SAT 98
== END 2016-12-12 21:18 | disposition home or self-care (01) ==
DX: R10.11 Right upper quadrant pain (principal); I10 Essential (primary) hypertension; I25.2 Old myocardial infarction; Z79.82 Long term (current) use of aspirin
CPT/HCPCS: J3010